=== PATIENT | female | born 1960 | race Caucasian/White ===

== ENCOUNTER 2022-03-19 23:51 | Emergency (ER) | payer OTHER, MEDICAID ==
[2022-03-20 02:29] VITALS: BP_SYST 144
--- NOTE | 2022-03-20 02:40 | NUR ---
61 y/o F ambulatory to ED with c/o LLE pain S/P venous ablation X1 month ago. Pain reports pain/tenderness to puncture sites. (+) swelling/redness noted.
[2022-03-20] MEDS ORDERED: IBUP-1969 PO (03:44)
[2022-03-20] MEDS ORDERED: CLIN-142 PO (03:44)
[2022-03-20] MEDS ORDERED: IBUPROFEN 600 MG TABLET PO ONE (03:45)
[2022-03-20] MEDS ORDERED: cefTRIAXone 1 GM in LIDOCAINE 1%, 20 ML MDV 2.1 ML IM ONE (03:45)
[2022-03-20 04:27] VITALS: BP_SYST 144
--- NOTE | 2022-03-20 04:27 | NUR ---
Patient given written and verbal discharge instructions and verbalizes understanding. ER Dr. Guzman discussed with patient the results and treatment provided. Patient in stable condition. ID arm band removed. Rx of clindamycin and ibuprofen given. Patient educated on pain management and to follow up with PMD. Pain Scale 0. Opportunity for questions provided and answered. Medication side effect fact sheet provided.
== END 2022-03-20 04:27 | disposition home or self-care (01) ==
LOC: SED 23:51
DX: L03.116 Cellulitis of left lower limb (principal); R22.42 Localized swelling, mass and lump, left lower limb; Z79.899 Other long term (current) drug therapy
CPT/HCPCS: 99284; 93971; 96372; J0696; J2001